=== PATIENT | female | born 1975 | race Caucasian/White ===

== ENCOUNTER 2017-04-01 11:56 | Day surgery (SDC) | payer OTHER ==
[~2017-04-01] VITALS: Ht 160 cm; Wt 65.8 kg
[~2017-04-01 11:56] MED LIST: 0.9% Sodium Chloride 1,000 ML IV SCH; BUPR200T34 PO; GABA-500 PO; Sodium Chloride LOK Flush 10 mL Syringe IV PRN; TOPI50TA32 PO; VENL25TA4 PO; fentaNYL-PF 50 mCg/mL 2 mL Inj IVPUSH PRN
[2017-04-01] MEDS ORDERED: METH27TA4 PO (12:34)
[2017-04-01 12:36] VITALS: BP 115/77; PULSE 72; RESP 14; O2SAT 98
[2017-04-01 14:05] VITALS: BP 116/65; PULSE 79; RESP 16; O2SAT 96
[2017-04-01 14:15] VITALS: BP 122/79; PULSE 65; RESP 16; O2SAT 100
--- NOTE | 2017-04-01 21:46 | ENDO ---
[address] [address] ENDOSCOPY PROCEDURE PATIENT: VIBHA GRAHAM : 1975 MR#: [id number] ADMIT: 04/01/2017 JOB ID: [id number] DATE OF PROCEDURE: 04/01/2017 PRIMARY PROVIDER: Lior Kirkpatrick MD. PROCEDURE: Colonoscopy with hot snare polypectomy. INDICATIONS: A 41-year-old female with Vinson syndrome asymptomatic. EQUIPMENT: [employer]. SEDATION: 1. Versed 5 mg. 2. Fentanyl 100 mcg. COMPLICATIONS: None identified. BOWEL PREPARATION: Fair at best, suboptimal in some locations where there was dense debris that could not be fully cleansed without completely obstructing the scope. PROCEDURE INFORMATION: After the risks and benefits were explained, written and verbal informed consent was obtained. The patient was brought into the endoscopy suite and placed into the left lateral decubitus position. Sedation was achieved as above. A digital rectal examination was accomplished. No significant pathology appreciated. The scope was introduced into the rectum and advanced to the cecum as identified by the appendiceal orifice and ileocecal valve. The scope was slowly withdrawn to carefully examine the mucosa for any defects or lesions. Multiple direct views were made through the dentate line for exclusion of pathology. The colon was decompressed. The scope was removed from the patient who tolerated the procedure well. FINDINGS: Around the hepatic flexure there was a small perhaps 5 mm polyp removed with hot snare. No other significant pathology was identified throughout within the limitations of bowel prep. ENDOSCOPIC DIAGNOSES: Diminutive polyp. RECOMMENDATIONS: 1. Await histopathology. 2. Repeat colonoscopy in two years.
--- NOTE | 2017-04-03 16:43 | PATH ---
SURGICAL PATHOLOGY Attending Physician:Curtis Andrews CASE STATUS: Signed Out PATIENT NAME: VIBHA GRAHAM PID: [id number] : 1975 DATE COLLECTED:04/01/2017 00:00 SPECIMEN: Colon, Biopsy CLINICAL HISTORY: 1. HEPATIC FLEXURE POLYP X1 FINAL DIAGNOSIS: Hepatic Flexure Polyp, Biopsy: Tubular adenoma; negative for high-grade dysplasia. ICD10: K63.5 GROSS DESCRIPTION: The specimen is received in one formalin filled container labeled with the patient's name, sublabeled "hepatic flexure polyp" and consists of a 0.3 x 0.3 x 0.2 CM portion of tissue which is entirely submitted in one cassette. 04/02/2017 [facility] ICD-9 CODES: CPT CODES: 1: 07058 Electronically Signed Out Tami Hughes MD [facility] Pathology [facility] [address] [facility] [facility], [place] [address] Technical component performed at [facility], [address] [place] [address] Ave[address], [place], [address]
== END 2017-04-01 23:59 | disposition home or self-care (01) ==
LOC: END 11:56
PROVIDERS: ATTEND Internal Medicine Gastroenterology
DX: Z12.11 Encounter for screening for malignant neoplasm of colon (principal); D12.2 Benign neoplasm of ascending colon; Z15.09 Genetic susceptibility to other malignant neoplasm; Z86.73 Personal history of transient ischemic attack (TIA), and cerebral infarction without residual deficits; F90.9 Attention-deficit hyperactivity disorder, unspecified type
CPT/HCPCS: 45385; 99153; G0500; J7030